=== PATIENT | male | born 1990 | race Asian ===

== ENCOUNTER 2016-06-17 22:09 | Emergency (ER) | payer BC ==
[~2016-06-17] VITALS: Ht 167.6 cm; Wt 97.0 kg
[2016-06-17 22:11] VITALS: Ht 167.6 cm; Wt 97.0 kg
--- NOTE | 2016-06-18 | ERD ---
ER Documentation Chief Complaint Date/Time DATE: 06/17/16 TIME: 23:55 Chief Complaint injured his R knee while playing basketball @1740 today HPI Patient is a 25-year-old male who presents the ED with right knee and right ankle pain after sustaining a fall playing basketball today he states that he was playing basketball and landed on his knee. This occurred at 6 PM today. He denies any radiation of pain up to his hip. He denies calf pain or tenderness. He states he is unable to put pressure on his right foot due to the pain in his ankle and right knee. He is able to bend his knee. He has taken Advil for his symptoms with minimal relief. He denies previous trauma to these areas. He denies hitting his head, blacking out or losing consciousness. He denies any nausea, vomiting or diarrhea. Denies any headache or dizziness. Denies any chest pain, cough or shortness of breath. He denies any leg swelling. ROS All systems reviewed and are negative except as per history of present illness. Allergies Allergies: Coded Allergies: No Known Allergy (Unverified , 06/17/16) PMhx/Soc Medical and Surgical Hx: pt denies Medical Hx, pt denies Surgical Hx History of Surgery: No Anesthesia Reaction: No Hx Neurological Disorder: No Hx Respiratory Disorders: No Hx Cardiac Disorders: No Hx Psychiatric Problems: No Hx Miscellaneous Medical Probl: No Hx Alcohol Use: Yes (SOCIAL) Hx Substance Use: No Hx Tobacco Use: No Smoking Status: Never smoker Physical Exam Vitals Vital Signs Date Time Temp Pulse Resp B/P Pulse Ox O2 Delivery O2 Flow Rate FiO2 06/18/16 01:46 98.9 70 18 130/60 95 Room Air 06/17/16 22:11 98.9 94 20 142/67 95 Physical Exam GENERAL: Well-developed, well-nourished male. Appears in no acute distress. HEAD: Normocephalic, atraumatic. LUNG: Clear to auscultation bilaterally. No rhonchi, wheezing, rales or coarse breath sounds. HEART: Regular rate and rhythm. No murmurs, rubs or gallops. ORTHO: tenderness to lateral aspect of right knee. no swelling or ecchymosis. small abrasion to anterior knee. tenderness to lateral malleoli. rom intact. no pain with knee flexion or extension. negative christie test. negative kylie test. no effusion or ballotment. pulses intact bilaterally. negative karla sign. no open wounds, lacerations or signs of infection. Extremities: Equal pulses bilaterally. No peripheral clubbing, cyanosis or edema. No unilateral leg swelling. NEUROLOGIC: Alert and oriented. Moving all four extremities. 5/5 strength in all extremities. Normal speech. Steady gait. SKIN: Normal color. Warm and dry. No rashes or lesions. Capillary refill < 2 seconds Procedures/MDM ER COURSE: I kept the patient and/or family informed of laboratory and diagnostic imaging results throughout the emergency room course. EKG, MONITORS, & DIAGNOSTIC IMAGING: [place] [id number] Radiology Main Line: [phone] DIAGNOSTIC IMAGING REPORT Patient: IRIS US : 1990 Age: 25 Sex: M MR #: [id number] DOS: 06/17/16 2341 Ordering MD: DUNIA MARTINEZ PA-C Location: [facility] Room/Bed: PROCEDURE: XR Right Ankle. CLINICAL INDICATION: Trauma. Pain. TECHNIQUE: Three views of the right ankle are available for review COMPARISON: None available FINDINGS: There are no fractures. Joint relationships are maintained. Ankle mortise is intact. Bone mineralization is within normal limits. Soft tissues are unremarkable. IMPRESSION: 1. No acute abnormality. RPTAT: [facility] .Derek Tomlinson MD, MD Date Time Electronically viewed and signed by .Derek Tomlinson MD, MD on 06/18/2016 01:09 .K/ CC: DUNIA MARTINEZ PA-C [place] [id number] Radiology Main Line: [phone] DIAGNOSTIC IMAGING REPORT Patient: IRIS US : 1990 Age: 25 Sex: M MR #: [id number] DOS: 06/17/16 2341 Ordering MD: DUNIA MARTINEZ PA-C Location: [facility] Room/Bed: PROCEDURE: XR Knee. CLINICAL INDICATION: Pain TECHNIQUE: Three views of the right knee are available for review. COMPARISON: None available FINDINGS: There is no fracture. Joint relationships are maintained. Bone mineralization is within normal limits. Soft tissues are unremarkable. IMPRESSION: 1. Unremarkable right knee x-ray series. 2. No acute fracture or dislocation is seen. RPTAT: [facility] .Derek Tomlinson MD, Date Time Electronically viewed and signed by .Derek Tomlinson MD, on 06/18/2016 01:08 .K/ CC: DUNIA MARTINEZ PA-C PROCEDURES: Kishan wrap assessment: Neurovascularly intact post Kishan wrap placement with good fit on both ankle and knee MEDICAL DECISION MAKING: This is a 25-year-old male who presents with right knee pain and right ankle pain after sustaining a fall playing basketball today. Vital signs were reviewed. Patient is afebrile. Patient is not hypoxic. Patient likely has a ankle sprain and a knee sprain. Low suspicion for dislocation, fracture, septic joint, compartment syndrome, osteomyelitis, cellulitis, avascular necrosis, neurological injury, vascular injury, tendon laceration. Low suspicion for dislocation, fracture, septic joint, compartment syndrome, osteomyelitis, avascular necrosis, DVT, Achilles tendon rupture, cellulitis. At this time, unable to rule out any tendon and ligament injuries. Explained to patient that we cannot rule out any meniscus or ligament injury. Patient to follow-up with orthopedics for further evaluation. DISCHARGE: At this time, patient is stable for discharge and outpatient management with no new complaints during the ER course. Patient was sent home with crutches, Kishan wrap. Patient did not want any pain medication.. Patient will be discharged home with instructions to recheck for new or worsening symptoms such as fever, nausea, weakness, LOC and to follow up with primary care in the next 1-2 days. Patient was advised to return to the ER for any new or worsening symptoms. Plan was discussed and patient and/or family understands and agrees. Home instructions were given. Departure Diagnosis: Primary Impression: Knee pain Laterality: right Chronicity: acute Qualified Code: M25.561 - Acute pain of right knee Additional Impression: Ankle sprain Encounter type: initial encounter Involved ligament of ankle: unspecified ligament Laterality: right Qualified Code: S93.401A - Sprain of right ankle , unspecified ligament, initial encounter Condition: Stable DUNIA MARTINEZ PA-C Jun 17, 2016 23:59
--- NOTE | 2016-06-18 01:08 | RADRPT ---
PROCEDURE: XR Knee. CLINICAL INDICATION: Pain TECHNIQUE: Three views of the right knee are available for review. COMPARISON: None available FINDINGS: There is no fracture. Joint relationships are maintained. Bone mineralization is within normal avendaño its. Soft tissues are unremarkable. IMPRESSION: 1. Unremarkable right knee x-ray series. 2. No acute fracture or dislocation is seen. RPTAT: [facility] .Derek Tomlinson MD, Date Time Electronically viewed and signed by .Derek Tomlinson MD, on 06/18/2016 01:08 .K/
--- NOTE | 2016-06-18 01:10 | RADRPT ---
PROCEDURE: XR Right Ankle. CLINICAL INDICATION: Trauma. Pain. TECHNIQUE: Three views of the right ankle are available for review COMPARISON: None available FINDINGS: There are no fractures. Joint relationships are maintained. Ankle mortise is intact. Bone mineral ization is within normal limits. Soft tissues are unremarkable. IMPRESSION: 1. No acute abnormality. RPTAT: [facility] .Derek Tomlinson MD, Date Time Electronically viewed and signed by .Derek Tomlinson MD, on 06/18/2016 01:09 .K/
[2016-06-18 01:46] VITALS: BP 130/60; PULSE 70; RESP 18; TEMP 98.9
== END 2016-06-18 01:46 | disposition home or self-care (01) ==
LOC: FTE 22:09
DX: S89.91XA Unspecified injury of right lower leg, initial encounter (principal); S93.401A Sprain of unspecified ligament of right ankle, initial encounter; W18.39XA Other fall on same level, initial encounter; Y92.9 Unspecified place or not applicable
CPT/HCPCS: 73562